=== PATIENT | male | born 1990 | race Hispanic/Latino ===

== ENCOUNTER 2017-11-23 16:01 | Emergency (ER) | payer SELFPAY ==
[2017-11-23] MEDS ORDERED: MIDAZOLAM HCL 2 MG/2 ML INJ ONE (16:27)
[2017-11-23] MEDS ORDERED: TETANUS & DIPHTHERIA TOX,ADULT 0.5 ML VIAL ONE (17:44)
[2017-11-23] MEDS ORDERED: LIDOCAINE 1% MPF 2 ML AMPULE ONE (17:44)
[2017-11-23] MEDS ORDERED: BUPIVACAINE 0.5% PF 10 ML VIAL ONE (17:44)
--- NOTE | 2017-11-23 18:10 | RAD REPORT ---
EXAM DESCRIPTION: RAD -Hand Left 3 View - 11/23/2017 5:59 pm CLINICAL HISTORY: Left hand pain status post injury FINDINGS: No fracture or dislocation is seen. A radiopaque body is not seen. A bandage overlies the hand obscuring detail somewhat
--- NOTE | 2017-11-23 19:15 | EDPHYS ---
Physician Documentation [facility] Name: Ugo Moraes Age: 27 yrs Sex: Male : 1990 Arrival Date: 11/23/2017 Time: 16:01 Bed 19 Private MD: ED Physician Emiliano Ramirez HPI: 11/23 18:00 This 27 yrs old Male presents to ER via Ambulatory with complaints of pm1 Laceration To Hand. 18:00 The patient has a laceration related to: working, occurred at work, and there are no pm1 complicating factors. The injury was accidental. The laceration(s) is(are) located on the inner aspect of left palm. Onset: The symptoms/episode began/occurred just prior to arrival. Associated signs and symptoms: Pertinent negatives: deformity, numbness distal to injury, suspected foreign body. The patient has not experienced similar symptoms in the past. The patient has not recently seen a physician. Patient was cutting sheet rock and accidentally cut his left hand. Patient able to move all his left finger full range of motion. Historical: - Allergies: 16:34 No Known Allergies; aj - Home Meds: 16:34 None [Active]; aj - PMHx: 16:34 None; aj - PSHx: 16:34 None; aj - Immunization history:: Last tetanus immunization: unknown. - Social history:: Smoking status: Patient/guardian denies using tobacco. - Ebola Screening: : Patient negative for fever greater than or equal to 101.5 degrees Fahrenheit, and additional compatible Ebola Virus Disease symptoms Patient denies exposure to infectious person Patient denies travel to an Ebola-affected area in the 21 days before illness onset No symptoms or risks identified at this time. ROS: 18:00 Constitutional: Negative for fever, chills, and weight loss, Eyes: Negative for injury, pm1 pain, redness, and discharge, ENT: Negative for injury, pain, and discharge, Neck: Negative for injury, pain, and swelling, Cardiovascular: Negative for chest pain, palpitations, and edema, Respiratory: Negative for shortness of breath, cough, wheezing, and pleuritic chest pain, Abdomen/GI: Negative for abdominal pain, nausea, vomiting, diarrhea, and constipation, Back: Negative for injury and pain, : Negative for injury, bleeding, discharge, and swelling. 18:00 Skin: Negative for injury, rash, and discoloration, Neuro: Negative for headache, weakness, numbness, tingling, and seizure. 18:00 MS/extremity: Positive for laceration, of the inner aspect of left palm, Negative for decreased range of motion, deformity. Exam: 18:00 Constitutional: This is a well developed, well nourished patient who is awake, alert, pm1 and in no acute distress. Head/Face: Normocephalic, atraumatic. Neck: Trachea midline, no thyromegaly or masses palpated, and no cervical lymphadenopathy. Supple, full range of motion without nuchal rigidity, or vertebral point tenderness. No Meningismus. Chest/axilla: Normal chest wall appearance and motion. Nontender with no deformity. No lesions are appreciated. Cardiovascular: Regular rate and rhythm with a normal S1 and S2. No gallops, murmurs, or rubs. Normal PMI, no JVD. No pulse deficits. Respiratory: Lungs have equal breath sounds bilaterally, clear to auscultation and percussion. No rales, rhonchi or wheezes noted. No increased work of breathing, no retractions or nasal flaring. Abdomen/GI: Soft, non-tender, with normal bowel sounds. No distension or tympany. No guarding or rebound. No evidence of tenderness throughout. Back: No spinal tenderness. No costovertebral tenderness. Full range of motion. 18:00 Skin: Appearance: normal except for affected area, injury, laceration(s), the wound is approximately 5 cm(s), with a depth of 1 cm(s), of the inner aspect of left palm. 18:00 Neuro: Orientation: is normal, Motor: is normal, Patient able to move all left fingers full range of motion. Neurovascular status intact. No numbness or tingling of left fingers. Vital Signs: 16:34 BP 114 / 75; Pulse 69; Resp 18; Temp 97.8; Pulse Ox 99% on R/A; Weight 72.57 kg; Height aj 5 ft. 8 in. (172.72 cm); 19:49 BP 120 / 70; Pulse 70; Resp 18; Temp 98; Pulse Ox 100% ; Pain 0/10; ea 16:34 Body Mass Index 24.33 (72.57 kg, 172.72 cm) aj Laceration: 19:08 Wound Repair of 5cm ( 2.0in ) subcutaneous laceration to inner aspect of left palm. pm1 Irregularly shaped.. Distal neuro/vascular/tendon intact. Anesthesia: Local anesthetic administered with 8 mls of Lido/Marcaine. Wound prep: Extensive cleansing with hibiclenz by nurse, Wound irrigation with saline by nurse, Wound explored extensively, Copious irrigation. Skin closed with 12 4-0 Prolene using simple sutures and sterile technique. Subcutaneous tissue closed with 2 4-0 Vicryl using simple sutures and sterile technique. Dressed with Neosporin, 4x4's, Kerlix. Patient tolerated well. MDM: 17:20 Patient medically screened. pm1 19:11 Data reviewed: vital signs. Data interpreted: Pulse oximetry: on room air is 99 %. pm1 Interpretation: normal. Counseling: I had a detailed discussion with the patient and/or guardian regarding: the historical points, exam findings, and any diagnostic results supporting the discharge/admit diagnosis, radiology results, the need for outpatient follow up, to return to the emergency department if symptoms worsen or persist or if there are any questions or concerns that arise at home. 11/23 17:28 Order name: Hand Left 3 View XRAY; Complete Time: 18:15 pm1 11/23 17:28 Order name: Prolene, Sutures; Complete Time: 19:04 pm1 11/23 17:28 Order name: Dressing - Wound; Complete Time: 19:48 pm1 11/23 17:28 Order name: Gloves, Sterile; Complete Time: 19:04 pm1 11/23 17:28 Order name: Setup Suture Tray; Complete Time: 19:04 pm1 Administered Medications: 17:56 Drug: Tetanus-Diphtheria Toxoid Adult 0.5 ml {[employer]: [employer]. Exp: em 02/22/2020. Lot #: [id number]. } Route: IM; Site: right deltoid; 19:15 Follow up: Response: No adverse reaction ea 18:11 Drug: Lidocaine (1 %) 20 ml {Note: administered by DARIN Salgado.} Volume: 20 ml; Route: em Infiltration; 18:11 Drug: Marcaine (0.5 %) 10 ml {Note: administered by DARIN Salgado.} Volume: 10 ml; Route: em Infiltration; 19:21 Drug: [place] 5 mg-325 mg 1 tabs Route: PO; ea 19:48 Follow up: Response: No adverse reaction ea Disposition: 11/23/17 19:14 Discharged to Home. Impression: Laceration without foreign body of left hand. - Condition is Stable. - Discharge Instructions: Laceration Care, Adult. - Prescriptions for Tylenol- Codeine #3 300-30 mg Oral Tablet - take 2 tablets by ORAL route every 6 hours As needed; 20 tablet. Bactrim DS 800- 160 mg Oral Tablet - take 1 tablet by ORAL route every 12 hours for 10 days; 20 tablet. - Medication Reconciliation Form, Thank You Letter, Antibiotic Education, Prescription Opioid Use, Work release form form. - Follow up: Emergency Department; When: As needed; Reason: Worsening of condition. Follow up: Konstantin Jeff MD; When: 2 - 3 days; Reason: Recheck today's complaints, Continuance of care, Re-evaluation by your physician. - Problem is new. - Symptoms have improved. Addendum: 11/25/2017 13:40 Co-signature as Attending Physician, Emiliano Ramirez MD. g s Signatures: Dispatcher [employer] EDItalia Mitchell RN RN Jairo Mtz, PLASMA CENTER NURSE PLASMA CENTER NURSE em Damian Fu, CORE BAKER CORE BAKER pm1 Susie Goldberg RN RN ea Starr, Gregory, MD MD Corrections: (The following items were deleted from the chart) 11/23 19:51 19:14 11/23/2017 19:14 Discharged to Home. Impression: Laceration without foreign body ea of left hand. Condition is Stable. Forms are Medication Reconciliation Form, Thank You Letter, Antibiotic Education, Prescription Opioid Use. Follow up: Emergency Department; When: As needed; Reason: Worsening of condition. Follow up: Konstantin Jeff; When: 2 - 3 days; Reason: Recheck today's complaints, Continuance of care, Re-evaluation by your physician. Problem is new. Symptoms have improved. pm1
--- NOTE | 2017-11-23 19:15 | ER ---
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 Bleeding controlled. Transition of care: patient was not received from another setting of care. Complicating Factors: There are no complicating factors for this patient. Onset of symptoms was November 23, 2017. Risk Assessment: Do you want to hurt yourself or someone else? Patient reports no desire to harm self or others. Care prior to arrival: None. 16:32 Method Of Arrival: Ambulatory 16:32 Acuity: CHRIS 4 aj 17:57 Initial Sepsis Screen: Does the patient meet any 2 criteria? No. Patient's initial em sepsis screen is negative. Does the patient have a suspected source of infection? No. Patient's initial sepsis screen is negative. Triage Assessment: 16:34 General: Appears in no apparent distress. comfortable, Behavior is calm, cooperative, aj appropriate for age. Pain: Complains of pain in inner aspect of left palm. Neuro: Level of Consciousness is awake, alert, obeys commands, Oriented to person, place, time, situation, Appropriate for age. Respiratory: Airway is patent Respiratory effort is even, unlabored, Respiratory pattern is regular, symmetrical. Derm: Skin is intact, is healthy with good turgor, Skin is pink, warm \T\ dry. normal. Injury Description: Laceration sustained to inner aspect of left palm is 2.6 to 7.5 cm long, bleeding moderately. Historical: - Allergies: 16:34 No Known Allergies; aj - Home Meds: 16:34 None [Active]; aj - PMHx: 16:34 None; aj - PSHx: 16:34 None; aj - Immunization history:: Last tetanus immunization: unknown. - Social history:: Smoking status: Patient/guardian denies using tobacco. - Ebola Screening: : Patient negative for fever greater than or equal to 101.5 degrees Fahrenheit, and additional compatible Ebola Virus Disease symptoms Patient denies exposure to infectious person Patient denies travel to an Ebola-affected area in the 21 days before illness onset No symptoms or risks identified at this time. Screenin:57 Abuse screen: Denies threats or abuse. Nutritional screening: No deficits noted. em Tuberculosis screening: No symptoms or risk factors identified. Fall Risk None identified. Assessment: 17:18 General: Appears in no apparent distress. uncomfortable, Behavior is calm, cooperative. em Pain: Complains of pain in inner aspect of left palm Pain currently is 8 out of 10 on a pain scale. Neuro: Level of Consciousness is awake, alert, obeys commands, Oriented to person, place, time. Cardiovascular: Capillary refill < 3 seconds Patient's skin is warm and dry. Respiratory: Airway is patent Respiratory effort is even, unlabored, Respiratory pattern is regular, symmetrical. GI: Abdomen is flat. Derm: Skin is intact, Skin is pink, warm \T\ dry. Musculoskeletal: Range of motion: intact in all extremities. Injury Description: Laceration sustained to inner aspect of left palm is clean, bleeding moderately, was sustained 1-2 hours ago. is bleeding a small amount. 17:18 Reassessment: I agree with assessment completed by Jairo Lynch LVN. Laceration is aa5 approximately 1.5 in long. . 18:20 Reassessment: Patient appears in no apparent distress at this time. Patient and/or em family updated on plan of care and expected duration. Pain level reassessed. Patient is alert, oriented x 3, equal unlabored respirations, skin warm/dry/pink. 19:30 General: Appears in no apparent distress. Behavior is calm, cooperative. Pain: ea Complains of pain in inner aspect of left palm. Neuro: Level of Consciousness is awake, alert, obeys commands, Oriented to person, place, time, situation. Cardiovascular: Patient's skin is warm and dry. Respiratory: Airway is patent Respiratory effort is even, unlabored, Respiratory pattern is regular, symmetrical. GI: Abdomen is flat. Derm: Skin is pink, warm \T\ dry. Injury Description: Laceration sustained to inner aspect of left palm. Vital Signs: 16:34 BP 114 / 75; Pulse 69; Resp 18; Temp 97.8; Pulse Ox 99% on R/A; Weight 72.57 kg; Height aj 5 ft. 8 in. (172.72 cm); 19:49 BP 120 / 70; Pulse 70; Resp 18; Temp 98; Pulse Ox 100% ; Pain 0/10; ea 16:34 Body Mass Index 24.33 (72.57 kg, 172.72 cm) aj ED Course: 16:01 Patient arrived in ED. as 16:33 Triage completed. aj 16:34 Arm band placed on left wrist. Patient placed in waiting room. aj 17:18 Patient has correct armband on for positive identification. Bed in low position. Call em light in reach. Adult w/ patient. 17:20 Damian Fu NP is PHCP. pm1 17:20 Emiliano Ramirez MD is Attending Physician. pm1 17:39 Jairo Lynch LVN is Primary Nurse. em 17:58 X-ray completed. Portable x-ray completed in exam room. Patient tolerated procedure kc2 well. 17:59 Hand Left 3 View XRAY In Process Unspecified. EDMS 18:52 Patient did not have IV access during this emergency room visit. em 18:52 Assist provider with laceration repair on inner aspect of left palm that was between em 2.6 to 7.5 cm using sutures. Set up tray. Performed by Jairo Lynch LVN Dressed with Kerlix, Neosporin, Patient tolerated well. 19:13 Konstantin Jeff MD is Referral Physician. 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 Exp: em 02/22/2020. Lot #: [id number]. } Route: IM; Site: right deltoid; 19:15 Follow up: Response: No adverse reaction ea 18:11 Drug: Lidocaine (1 %) 20 ml {Note: administered by DARIN Salgado.} Volume: 20 ml; Route: em Infiltration; 18:11 Drug: Marcaine (0.5 %) 10 ml {Note: administered by DARIN Salgado.} Volume: 10 ml; Route: em Infiltration; 19:21 Drug: [place] 5 mg-325 mg 1 tabs Route: PO; ea 19:48 Follow up: Response: No adverse reaction ea Intake: 16:05 IV: 500ml; Total: 500ml. em Outcome: 19:14 Discharge ordered by MD. pm1 19:49 Discharged to home ambulatory, with friend. ea 19:49 Condition: improved 19:49 Discharge instructions given to patient, Instructed on discharge instructions, follow up and referral plans. medication usage, Demonstrated understanding of instructions, follow-up care, medications, Prescriptions given X 2. 19:51 Patient left the ED. ea Signatures: Dispatcher [employer] Italia Tinoco, RN RN Jairo Mtz, MATTRESS MAKER MATTRESS MAKER Shayna Oneill Audri, RN RN aa5 Damian Fu NP DIRECTOR OPERATIONS BROADCAST 1 Elicia Salgado 2 Susie Goldberg RN RN ea Corrections: (The following items were deleted from the chart) 18:53 18:52 No provider procedures requiring assistance completed. em em 19:05 19:05 IV Status: Completed infusion; IV Intake: 500ml em em
[2017-11-23] MEDS ORDERED: HYDROCODONE/APAP 5/325 MG TAB ONE (19:19)
== END 2017-11-23 19:51 | disposition home or self-care (01) ==
LOC: ER 16:01
PROC: 0JQK0ZZ Repair Left Hand Subcutaneous Tissue and Fascia, Open Approach (ICD-10-PCS; principal; 2017-11-23)
DX: S61.412A Laceration without foreign body of left hand, initial encounter (principal); W27.8XXA Contact with other nonpowered hand tool, initial encounter; Y93.89 Activity, other specified; Y92.89 Other specified places as the place of occurrence of the external cause; Y99.8 Other external cause status; Z23 Encounter for immunization
CPT/HCPCS: 90714; 99284; J2001; J2250

== ENCOUNTER 2017-12-04 12:13 | Emergency (ER) | payer SELFPAY ==
--- NOTE | 2017-12-04 14:16 | ER ---
Nurse's Notes [facility] Name: Ugo Moraes Age: 27 yrs Sex: Male : 1990 Arrival Date: 12/04/2017 Time: 12:16 Bed 11 Private MD: None, None Diagnosis: Encounter for removal of sutures Presentation: 12/04 12:31 Presenting complaint: Patient states: suture removal to left hand. Had placed here sv 11/23/17. Transition of care: patient was not received from another setting of care. Onset of symptoms was November 23, 2017. Care prior to arrival: None. 12:31 Method Of Arrival: Ambulatory sv 12:31 Acuity: CHRIS 5 sv - Family history:: not pertinent. - Hospitalizations: : No recent hospitalization is reported. Vital Signs: 12:31 BP 109 / 59; Pulse 59; Resp 18; Temp 97.8; Pulse Ox 99% ; sv ED Course: 12:16 Patient arrived in ED. sb2 12:16 None, None is Private Physician. sb2 12:31 Triage completed. sv 12:32 Arm band placed on right wrist. sv 12:32 Patient placed in waiting room, Patient notified of wait time. sv 13:57 Diego Anderson MD is Attending Physician. rn Administered Medications: No medications were administered Outcome: 14:16 Discharge ordered by . rn 14:49 Patient left the ED. sv Signatures: Bobbi Gomez RN FRANCE Diego Anderson MD MD rn Billeau, Sheri sb2
--- NOTE | 2017-12-04 14:16 | EDPHYS ---
Physician Documentation [facility] Name: Ugo Moraes Age: 27 yrs Sex: Male : 1990 Arrival Date: 12/04/2017 Time: 12:16 Bed 11 Private MD: None, None ED Physician Diego Anderson HPI: 12/04 14:12 This 27 yrs old Male presents to ER via Ambulatory with complaints of Suture rn Removal. 14:12 The patient has sutures on the left hand. The patient has not experienced similar rn symptoms in the past. The patient has been recently seen by a physician:. Reports laceration 12 days ago, told to return in 10, waited to make sure, no fever/drainage. . - Family history:: not pertinent. - Hospitalizations: : No recent hospitalization is reported. 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 MS/ Extremity: Pulses equal, no cyanosis. Neurovascular intact. Full, normal range of motion. Equal circumference. 14 stitches total, wound looks a little losse in center, no signs of infection Vital Signs: 12:31 BP 109 / 59; Pulse 59; Resp 18; Temp 97.8; Pulse Ox 99% ; sv Procedures: 14:12 Suture/Staple removal: Removed 8 sutures, from left hand, site appears Patient rn tolerated well. MDM: 13:57 Patient medically screened. rn 14:12 Data reviewed: vital signs, nurses notes, and as a result, I will discharge patient. rn Counseling: I had a detailed discussion with the patient and/or guardian regarding: the historical points, exam findings, and any diagnostic results supporting the discharge/admit diagnosis, the need for outpatient follow up, to return to the emergency department if symptoms worsen or persist or if there are any questions or concerns that arise at home. Special discussion: I discussed with the patient/guardian in detail that at this point there is no indication for admission to the hospital. It is understood, however, that if the symptoms persist or worsen the patient needs to return immediately for re-evaluation. 14:12 ED course: Left central stitches due to concern of wound opening up, told to return in rn 2 days for reeval.. Administered Medications: No medications were administered Disposition: 12/04/17 14:16 Discharged to Home. Impression: Encounter for removal of sutures. - Condition is Stable. - Discharge Instructions: Suture Removal, Care After, Incision Care. - Medication Reconciliation Form, Thank You Letter, Antibiotic Education, Prescription Opioid Use form. - Follow up: Private Physician; When: As needed; Reason: Recheck today's complaints, Re-evaluation by your physician. - Problem is new. - Symptoms have improved. Signatures: Bobbi Gomez RN RN Diego Anderson MD MD chemist intern: (The following items were deleted from the chart) 14:49 14:16 12/04/2017 14:16 Discharged to Home. Impression: Encounter for removal of sv sutures. Condition is Stable. Forms are Medication Reconciliation Form, Thank You Letter, Antibiotic Education, Prescription Opioid Use. Follow up: Private Physician; When: As needed; Reason: Recheck today's complaints, Re-evaluation by your physician. Problem is new. Symptoms have improved. rn
== END 2017-12-04 14:49 | disposition home or self-care (01) ==
LOC: ER 12:13
DX: Z48.02 Encounter for removal of sutures (principal)
CPT/HCPCS: 99281